=== PATIENT | female | born 1965 | race Caucasian/White ===

== ENCOUNTER 2017-05-09 22:47 | Emergency (ER) | payer MEDICAID ==
[2017-05-10] MEDS ORDERED: PROMETHAZINE/DM (CUP) PO (01:30)
[2017-05-10] MEDS: IPRATROPIUM (NEB) 0.5 MG/2.5 ML AMP NEB (02:14)
[2017-05-10] MEDS: ALBUTEROL 0.083% (NEB) 2.5 MG/3 ML AMP NEB (02:14)
[2017-05-10] MEDS: GUAIFENESIN/DM 5ML CUP PO (04:18)
== END 2017-05-10 04:54 | disposition home or self-care (01) ==
LOC: FTE 22:47
DX: J06.9 Acute upper respiratory infection, unspecified (principal)
CPT/HCPCS: 94664; 99284-25